=== PATIENT | female | born 1940 | race Hispanic/Latino ===

== ENCOUNTER 2025-01-15 08:02 | Day surgery (SDC) | payer MEDICARE ==
[~2025-01-15] VITALS: Ht 160 cm; Wt 90.7 kg
[2025-01-15] VITALS (11 sets, daily range): BP systolic 107–162; BP diastolic 46–60; PULSE 55–61; RESP 12–15; TEMP 96.8–97.5
[2025-01-15] MEDS: 0.9%NACL 1000ML 1,000 ML IV ONE (10:32)
[2025-01-15] MEDS ORDERED: COLE625T14 PO (10:50)
[2025-01-15] MEDS ORDERED: CARV25TA PO (10:50)
[2025-01-15] MEDS ORDERED: TORS20TA4 PO (10:50)
[2025-01-15] MEDS ORDERED: SACU1TAB4 PO (10:50)
[2025-01-15] MEDS ORDERED: PRED2.5T PO (10:50)
[2025-01-15] MEDS ORDERED: ALLO100T PO (10:50)
[2025-01-15] MEDS ORDERED: TIRZ2.5V SQ (10:50)
[2025-01-15] MEDS ORDERED: PREG100C56 PO (10:50)
[2025-01-15] MEDS ORDERED: DOXA2TAB2 PO (10:50)
[2025-01-15] MEDS ORDERED: AMLO-257 PO (10:50)
[2025-01-15] MEDS ORDERED: SERT-440 PO (10:50)
[2025-01-15] MEDS ORDERED: APIX2.5T PO (10:50)
--- NOTE | 2025-01-15 12:45 | NUR ---
SPOKE TO PTS DAUGHTERS DIDIER AND FERNANDO AND THEY GAVE ME NURSE PHONE NUMBER [phone] HE EXPLAINED TO THEM PT DID NOT TAKE PILLS BECAUSE HE PREPARES THE PILL BOX WEEKLY AND DAUGHTER FERNANDO THAT CAME FROM [place] TO STAY WITH HER FOR THIS PROCEDURE STATES PT DID NOT TAKE PILLS LAST NIGHT SHE TOOK THE MORNING ONES THE ONLY THING SHE TOOK LAST NIGHT WAS THE LIQUID MEDICATION FOR THE PROCEDURE TODAY AND SHE DID NOT TAKE ANY THIS AM .
--- NOTE | 2025-01-15 13:00 | NUR ---
SPOKE TO PEGGY GOODRICH [facility] NURSE STATE HE PREPARES PTS MEDICATION PILL BOX WEEKLY STATES HE KNOWS FOR SURE PT DID NOT TAKE HER ELIQUIS M/T/W THIS WEEK BECAUSE HE DID NOT PUT ANY FOR THOSE DAYS IN THE BOX IN THE BOX HE WAS AWARE OF PTS PROCEDURE TODAY
--- NOTE | 2025-01-15 13:35 | NUR ---
DR HOLLAND TO SPEAK WITH PT AND FAMILY ABOUT MEDICATION IF TAKEN RISKS DAUGHTERS VERBALIZE UNDERSTANDING AND THEY ARE SURE THE PT DID NOT TAKE PER WHAT THET SAW AND WHT THE NURSE TOLD THEM SO THEY AGREE WITH PT TO CONTINUE
== END 2025-01-15 15:32 | disposition home or self-care (01) ==
LOC: ENDO 08:02 → DAH 08:05 → ENDO 15:32
PROVIDERS: ATTEND Internal Medicine Gastroenterology
DX: K52.9 Noninfective gastroenteritis and colitis, unspecified (principal); K57.30 Diverticulosis of large intestine without perforation or abscess without bleeding; R19.4 Change in bowel habit; K21.9 Gastro-esophageal reflux disease without esophagitis; F41.9 Anxiety disorder, unspecified; I11.0 Hypertensive heart disease with heart failure; E03.9 Hypothyroidism, unspecified; K64.9 Unspecified hemorrhoids; I50.20 Unspecified systolic (congestive) heart failure; E66.9 Obesity, unspecified; Z86.0100 Personal history of colon polyps, unspecified; Z68.36 Body mass index [BMI] 36.0-36.9, adult; Z88.0 Allergy status to penicillin; Z90.710 Acquired absence of both cervix and uterus; Z90.49 Acquired absence of other specified parts of digestive tract; Z98.890 Other specified postprocedural states
CPT/HCPCS: 45380; J7030 ×2; J2704 ×2; A4215; A7002; J3490